=== PATIENT | male | born 1940 | race Hispanic/Latino ===

== ENCOUNTER 2019-08-21 10:44 | Outpatient (CLI) | payer MEDICARE, SELFPAY ==
--- NOTE | ~2019-08-21 | XR_ITS ---
EXAMINATION: XR hand LT 2V DATE: 08/21/2019 11:08 INDICATION: Left hand middle finger injury. TECHNIQUE: 2 views of left hand were obtained. COMPARISON: None. FINDINGS: Bone alignment is normal. No fracture. There is mild osteoarthritis of most of the interpha langeal joints. IMPRESSION: 1. Mild polyarticular osteoarthritis. Reviewed, dictated and finalized at location B. REDUCTION ROLLER
== END 2019-08-21 10:45 | disposition home or self-care (01) ==
LOC: ANHIMG 10:49
PROVIDERS: PCP Internal Medicine; Visit Provider Internal Medicine
DX: S60.032A Contusion of left middle finger without damage to nail, initial encounter (principal); X58.XXXA Exposure to other specified factors, initial encounter; M19.042 Primary osteoarthritis, left hand
CPT/HCPCS: 73120

== ENCOUNTER 2021-05-07 08:19 | Outpatient (CLI) | payer OTHER, SELFPAY ==
--- NOTE | ~2021-05-07 | US_ITS ---
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 TECHNIQUE: Segmental pressures and plethysmographic and Doppler waveforms of the brachial and lower e xtremity arteries were obtained. COMPARISON: None. FINDINGS: Right and left brachial artery pressures of 130 mm Hg and 134 mm Hg, respectively, are concordant (no rmal difference <= 30 mmHg). The right high thigh pressure index is 1.40 (normal > 1.2). The left hig h thigh pressure index was unable to be obtained due to inability to occlude the vessels. The right ankle-brachial index (MASON) is 0.83 (normal >= 0.9-1). The right great toe-brachial index (T BI) is 0.54 (normal >= 0.6-0.8). The right lower extremity segmental pressure gradients are increased between the right dsvaf-uqo-nbqg popliteal arteries and the right dorsalis pedis and posterior tibia l arteries at the right ankle (normal gradients <= 20-30 mmHg between adjacent levels on the same leg or the same levels on the two legs). Arterial waveforms are biphasic with brisk systolic upstrokes t hroughout the arteries of the right lower limb. The left MASON is 0.91. The left TBI is 0.71. The left lower extremity segmental pressure gradients are increased between the left evcta-srk-kdwz popliteal artery and the left dorsalis pedis and posterior tibial arteries at the left ankle. The arterial waveform at the left dorsalis pedis artery demonstra courtney poor fonnre-pj-vdrrj precluding accurate assessment. Arterial waveforms are biphasic with brisk s ystolic upstrokes at the remaining arteries of the left lower limb. IMPRESSION: 1. 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 2. Arterial pressure gradient at the left calf with borderline left MASON but normal left TBI consisten t with mild arterial occlusive disease of borderline significance. Reviewed, dictated and finalized at location B. IMPRESSION: 1. Mild arterial occlusive disease to the right lower limb with mildly decrease d right MASON and TBI. 2. Arterial pressure gradient at the left calf with borderline left MASON but nor mal left TBI consistent with mild arterial occlusive disease of borderline sign ificance.
== END 2021-05-07 08:20 | disposition home or self-care (01) ==
PROVIDERS: Visit Provider Podiatrist Foot & Ankle Surgery
DX: I73.9 Peripheral vascular disease, unspecified (principal)
CPT/HCPCS: 93923

== ENCOUNTER 2023-03-08 10:54 | Outpatient (CLI) | payer MEDICARE, SELFPAY ==
[2023-03-08 11:55] LABS: Basophils Percent Auto 0.4 % (0.2-1.2); Eosinophils Absolute Auto 0.1 K/mm3 (0-0.3); Eosinophils Percent Auto 1.5 % (0-4.4); Hematocrit 34.9 % (42.0-52.0); Hemoglobin 11.6 g/dL (14.0-18.0); Immature Granulocyte Absolute 0.02 K/mm3 (0.00-0.031); Immature Granulocyte Percent A 0.4 % (0-0.5); Lymphocytes Absolute Auto 1.68 K/mm3 (0.9-3.2); Lymphocytes Percent Auto 30.8 % (18.3-44.2); Mean Corpuscular HGB Conc 33.2 g/dl (32-36); Mean Corpuscular Hemoglobin 28.6 pg (26-34); Monocytes Absolute Auto 0.4 K/mm3 (0.1-0.6); Monocytes Percent Auto 8.1 % (2.6-8.5); Neutrophils Absolute Auto 3.2 K/mm3 (1.3-6.7); Neutrophils Percent Auto 58.8 % (45.5-73.1); Platelet Count Result 186 k/mm3 (150-375); Red Blood Count 4.06 M/mm3 (4.6-6.20); Red Cell Distribution Width 13.5 % (11.5-14.5); White Blood Count 5.5 K/mm3 (4.5-10.0)
[2023-03-08 12:05] LABS: Alanine Aminotransferase 20 U/L (6-50); Albumin Level 4.1 g/dL (3.5-5.1); Alkaline Phosphatase 75 U/L (38-126); Anion Gap 8 mmol/L (8-16); Aspartate Amino Transferase 24 U/L (17-59); Bilirubin,Total 0.6 mg/dL (0.2-1.3); Blood Urea Nitrogen 28 mg/dL (9-20); Calcium 8.9 mg/dL (8.4-10.2); Carbon Dioxide 22 mmol/L (22-30); Chloride 106 mmol/L (98-107); Cholesterol 167 mg/dL (0-200); Estimated Glomerular Filt Rate 39; Glucose 124 mg/dL (65-110); HDL Direct 42 mg/dL; Phosphorus 3.4 mg/dL (2.5-4.5); Potassium 4.9 mmol/L (3.4-5.0); Sodium 136 mmol/L (137-145); Triglycerides 160 mg/dL (<150)
[2023-03-08 12:17] LABS: LDL Cholesterol Direct 88 mg/dL
[2023-03-08 12:25] LABS: Appearance Urine Clear (Clear); Bacteria Urine None Seen /hpf; Bilirubin Urine Negative (Negative); Blood Urine Negative (Negative); Color Urine Yellow (Yellow); Glucose Urine UA Negative (Negative); Hyaline Casts Urine Present /lpf; Ketones Urine Negative (Negative); Leukocyte Esterase Ur 2+ LEU/UL (Negative); Nitrate Urine Negative (Negative); Non Pathogenic Casts 0-2; Protein Urine Negative (Negative); RBC Urine 0-2 /hpf (0-2); Specific Grav Ur 1.017 (1.001-1.035); Squamous Epithelial Cell Urine None seen /hpf (Few); Urobilinogen Urine 0.2 mg/dL (<2.0); WBC Urine 0-5 /hpf; pH Urine 5.5 (5.0-9.0)
[2023-03-08 12:26] LABS: Add Urine Microscopic? YES
[2023-03-08 12:31] LABS: Creatinine Urine 204.4 mg/dL
[2023-03-08 12:36] LABS: Prostate Specific Antigen 2.1 ng/mL (< OR = 4.0)
[2023-03-08 12:36] LABS: MALB Creatinine Ratio 9.9 mg/g (0-30); Microalbumin Urine Random 20.2 mg/L (0-16.7)
[2023-03-08 12:56] LABS: Vitamin D 25 Hydroxy 55.8 ng/mL
[2023-03-08 13:40] LABS: Free T4 Free Thyroxine 1.16 ng/mL (0.78-2.19)
[2023-03-12 13:00] LABS: Testosterone Total 320 ng/dL (250-1100)
== END 2023-03-08 10:55 | disposition home or self-care (01) ==
PROVIDERS: Visit Provider Internal Medicine
DX: J15.9 Unspecified bacterial pneumonia (principal); E11.22 Type 2 diabetes mellitus with diabetic chronic kidney disease; N40.1 Benign prostatic hyperplasia with lower urinary tract symptoms; I12.9 Hypertensive chronic kidney disease with stage 1 through stage 4 chronic kidney disease, or unspecified chronic kidney disease; N18.32 Chronic kidney disease, stage 3b; D64.9 Anemia, unspecified; Z79.899 Other long term (current) drug therapy; E78.2 Mixed hyperlipidemia; E66.09 Other obesity due to excess calories
CPT/HCPCS: 36415; 80053; 80061; 81001; 82043; 82306; 83036; 84100; 84153; 84403; 84439; 84443; 85025

== ENCOUNTER 2023-05-04 10:04 | Outpatient (CLI) | payer MEDICARE, SELFPAY ==
--- NOTE | ~2023-05-04 | US_ITS ---
EXAMINATION: US abdomen complete DATE: 05/04/2023 11:08 INDICATION: Anorexia, weight loss TECHNIQUE: Multiple grayscale and Doppler ultrasound images of the abdomen were obtained. COMPARISON: 08/06/2019 FINDINGS: The head and body of the pancreas are normal. The pancreatic tail is obscured by bowel gas. The liver is normal with normal echogenicity and echotexture. No surface nodularity. Normal hepatope jose flow in the main portal vein. The gallbladder is normal with no abnormal wall thickening, pericho lecystic fluid or stones. The normal common bile duct measures 1 mm. There was no sonographic Rose sign. The visualized portions of the aorta and inferior vena cava are normal. The spleen is normal in appearance and measures 10.3 cm. The right kidney measures 8.6 x 3.7 x 3.5 cm . The left kidney measures 8.9 x 4.6 x 3.4 cm. The kidneys demonstrate normal parenchymal echogenicit y. There is no hydronephrosis. IMPRESSION: 1. No sonographic correlate for the patient's symptoms. 2. Mild atrophy of the kidneys. Reviewed, dictated and finalized at location A.
== END 2023-05-04 10:05 | disposition home or self-care (01) ==
PROVIDERS: PCP Internal Medicine; Visit Provider Internal Medicine
DX: R63.4 Abnormal weight loss (principal); R68.81 Early satiety; R63.0 Anorexia
CPT/HCPCS: 76700

== ENCOUNTER 2023-05-05 00:58 | Day surgery (SDC) | payer MEDICARE, SELFPAY ==
[2023-04-25 13:59] VITALS: BMI 31.5
[2023-05-05 11:39] VITALS: BP 149/48; PULSE 66; RESP 20; TEMP 35.8; O2SAT 100; BMI 29.7
--- NOTE | 2023-05-05 12:03 | PM.HPGS ---
History of Present Illness History of Present Illness Consent: Risks, benefits, and alternatives have been discussed and questions answered. Patient agrees to proceed with procedure. Chief complaint: abnormal weightloss,early satiety,anorexia Narrative: Missael Madrigal is a 83 year old male Referred for EGD. Patient reports over last 4 months he has lost his appetite. He will eat several bites of a meal and then be feel full and not wish to eat anymore. Because of this he has lost some weight. He denies any specific abdominal pain. Patient referred for EGD to exclude organic disease of the stomach. Family history is noncontributory. He denies any prior history of ulcer disease. Review of Systems Review of Systems: Review of systems noncontributory. [facility] Family History Family History (Updated 10/02/15 @ 12:10 by DOCTOR UNKNOWN) Sibling Family history of suicide Patient's sister is Patient's brother is Acute myocardial infarction Mother Patient's mother is Father Patient's father is Social History Social History Smoking status: Never smoker Alcohol intake: former Substance use: never Substance use type: does not use Living arrangements: with family Spiritual care concerns: No Meds Home Medications and Allergies Home Medications Medication Instructions Recorded Confirmed Type aspirin 81 mg tablet,delayed 81 mg PO DAILY 07/26/19 05/05/23 History release (Aspir-) lisinopril 20 mg tablet 20 mg PO DAILY #90 tabs 08/12/20 05/05/23 Rx doxazosin 8 mg tablet 8 mg PO DAILY #90 tabs 02/01/21 05/05/23 Rx metformin 500 mg tablet 500 mg PO BID #180 tabs 02/01/21 05/05/23 Rx pravastatin 20 mg tablet 20 mg PO DAILY #90 tabs 02/15/21 05/05/23 Rx brimonidine 0.2 % eye drops 1 drp LEFT EYE BID 04/25/23 05/05/23 History brinzolamide 1 %-brimonidine 0.2 % 1 drp LEFT EYE BID 04/25/23 05/05/23 History eye drops,suspension (Simbrinza) cholecalciferol (vitamin D3) 25 25 mcg PO DAILY 04/25/23 05/05/23 History mcg (1,000 unit) capsule (Vitamin D3) prednisolone acetate 1 % eye 1 drp LEFT EYE BID 04/25/23 05/05/23 History drops,suspension sodium chloride 5 % eye drops 1 drp LEFT EYE QID 04/25/23 05/05/23 History (René 128) timolol maleate 0.5 % eye drops 1 drp LEFT EYE BID 04/25/23 05/05/23 History Allergies Allergy/AdvReac Type Severity Reaction Status Date / Time No Known Allergies Allergy Verified 05/05/23 11:38 Vital Signs Vital Signs - 24 hr 05/05/23 11:39 Temperature 96.5 F L Pulse Rate 66 Respiratory Rate 20 Blood Pressure 149/48 H Pulse Oximetry 100 Oxygen Delivery Room Air Exam Narrative: Physical exam reveals patient to be alert. Vital signs stable. HEENT exam is unremarkable. Patient is anicteric. Lungs are clear to auscultation and percussion. Heart is without murmur or extra sounds. Abdomen bowel sounds are present soft nontender with no organomegaly. Assessment and Plan Assessment and plan (1) Obesity (BMI 30.0-34.9): Code(s): E66.9 - Obesity, unspecified Status: Acute Assessment and Plan: patient remains obese despite weight loss. Continue monitor weight conservatively. (2) Weight loss: Code(s): R63.4 - Abnormal weight loss Status: Acute Assessment and Plan: Patient reports some recent weight loss associated with poor appetite and early satiety, EGD requested will be performed. (3) Early satiety: Code(s): R68.81 - Early satiety Status: Acute Assessment and Plan: Patient complains of no appetite and feeling full quickly. an EGD will be performed.
[2023-05-05] MEDS: LACTATED RINGERS 1,000 ML 150 ML IV CONT (12:06)
[2023-05-05 12:07] LABS: Glucose Point of Care 94 mg/dl (65-105)
--- NOTE | 2023-05-05 12:11 | WPDANESEPPF ---
Anes - Initial Pre Proc Eval Procedure: Operation Date: 05/05/23 13:00 Proposed Procedures p Esophagogastroduodenoscopy - Charlie Bergeron MD Date/Time: 05/05/23 12:11 Surgeon: Charlie Bergeron MD Pre Op Diagnosis: abnormal weightloss,early satiety,anorexia Patient Data Age: 83 Gender: M Height: 1.57 m Weight: 73.7 kg Last Vital Signs Temp 35.8 C L 05/05/23 11:39 Pulse 66 05/05/23 11:39 Resp 20 05/05/23 11:39 BP 149/48 H 05/05/23 11:39 Pulse Ox 100 05/05/23 11:39 O2 Del Method Room Air 05/05/23 11:39 Allergies Allergy/AdvReac Type Severity Reaction Status Date / Time No Known Allergies Allergy Verified 05/05/23 11:38 Home Medications Medication Instructions Recorded Confirmed Type aspirin 81 mg tablet,delayed 81 mg PO DAILY 07/26/19 05/05/23 History release (Aspir-) lisinopril 20 mg tablet 20 mg PO DAILY #90 tabs 08/12/20 05/05/23 Rx doxazosin 8 mg tablet 8 mg PO DAILY #90 tabs 02/01/21 05/05/23 Rx metformin 500 mg tablet 500 mg PO BID #180 tabs 02/01/21 05/05/23 Rx pravastatin 20 mg tablet 20 mg PO DAILY #90 tabs 02/15/21 05/05/23 Rx brimonidine 0.2 % eye drops 1 drp LEFT EYE BID 04/25/23 05/05/23 History brinzolamide 1 %-brimonidine 0.2 % 1 drp LEFT EYE BID 04/25/23 05/05/23 History eye drops,suspension (Simbrinza) cholecalciferol (vitamin D3) 25 25 mcg PO DAILY 04/25/23 05/05/23 History mcg (1,000 unit) capsule (Vitamin D3) prednisolone acetate 1 % eye 1 drp LEFT EYE BID 04/25/23 05/05/23 History drops,suspension sodium chloride 5 % eye drops 1 drp LEFT EYE QID 04/25/23 05/05/23 History (René 128) timolol maleate 0.5 % eye drops 1 drp LEFT EYE BID 04/25/23 05/05/23 History Laboratory Tests 05/05/23 11:52 POC Capillary Glucose 94 mg/dl (65-105) Patient hx anesthesia problems: none Family hx anesthesia problems: none Results Review: All pre-operative results and documents have been reviewed as part of the pre-operative evaluation. [facility] Family History Family History Sibling Family history of suicide Patient's sister is Patient's brother is Acute myocardial infarction Mother Patient's mother is Father Patient's father is Social History Social History Smoking status: Never smoker Alcohol intake: former Substance use: never Substance use type: does not use Living arrangements: with family Spiritual care concerns: No Anes - Eval Final PreProcedure Day of Procedure 05/05/23 12:11 Patient weight: overweight Heart: regular rate and rhythm Lungs: clear to auscultation Airway: Mallampati scale class II Neurological: alert and oriented Last oral intake: >/= 8 hours ASA classification: III Emergent: no Anesthetic plan: proceed Anesthesia type and monitoring: general GIVS and standard monitoring Results Review: All pre-operative results and documents have been reviewed as part of the pre-operative evaluation. Informed Consent: The patient's anesthetic plan and its attendant risks and benefits were discussed with the patient/family/POA. Questions were solicited and answers provided to the satisfaction of the patient/family/POA.
[2023-05-05 12:23] VITALS: BP 109/38; PULSE 55; RESP 20; O2SAT 99
--- NOTE | 2023-05-05 12:25 | SUR.OPER ---
Dr. Bergeron made aware of the positive H. pylori test.
[2023-05-05 12:33] VITALS: BP 141/53; PULSE 52; RESP 15; O2SAT 100
[2023-05-05 12:43] VITALS: BP 141/53; PULSE 55; RESP 20; O2SAT 100
== END 2023-05-05 12:58 | disposition home or self-care (01) ==
PROVIDERS: PCP Internal Medicine; Visit Provider Internal Medicine Gastroenterology
PROC: 0DJ08ZZ Inspection of Upper Intestinal Tract, Via Natural or Artificial Opening Endoscopic (ICD-10-PCS; CPT 43235; principal; 2023-05-05 13:00)
DX: R68.81 Early satiety (principal); R63.4 Abnormal weight loss; Z79.82 Long term (current) use of aspirin; Z79.84 Long term (current) use of oral hypoglycemic drugs; E66.9 Obesity, unspecified; Z68.29 Body mass index [BMI] 29.0-29.9, adult
CPT/HCPCS: 43239; 82948; 87081; J2704; J7120

== ENCOUNTER 2023-08-11 09:56 | Outpatient (CLI) | payer MEDICARE, SELFPAY ==
[2023-08-11 11:17] LABS: Basophils Percent Auto 0.4 % (0.2-1.2); Eosinophils Absolute Auto 0.2 K/mm3 (0-0.3); Eosinophils Percent Auto 3.2 % (0-4.4); Hematocrit 33.7 % (42.0-52.0); Hemoglobin 10.5 g/dL (14.0-18.0); Immature Granulocyte Absolute 0.01 K/mm3 (0.00-0.031); Immature Granulocyte Percent A 0.2 % (0-0.5); Lymphocytes Absolute Auto 1.47 K/mm3 (0.9-3.2); Lymphocytes Percent Auto 29.2 % (18.3-44.2); Mean Corpuscular HGB Conc 31.2 g/dl (32-36); Mean Corpuscular Hemoglobin 28.6 pg (26-34); Mean Corpuscular Volume 91.8 fl (80-100); Mean Platelet Volume 10.2 fl (7.4-10.4); Monocytes Absolute Auto 0.4 K/mm3 (0.1-0.6); Monocytes Percent Auto 7.3 % (2.6-8.5); Neutrophils Percent Auto 59.7 % (45.5-73.1); Platelet Count Result 171 k/mm3 (150-375); Red Blood Count 3.67 M/mm3 (4.6-6.20); Red Cell Distribution Width 13.2 % (11.5-14.5)
[2023-08-11 11:28] LABS: Alanine Aminotransferase 18 U/L (6-50); Alkaline Phosphatase 81 U/L (38-126); Anion Gap 9 mmol/L (8-16); Aspartate Amino Transferase 25 U/L (17-59); Bilirubin,Total 0.4 mg/dL (0.2-1.3); Blood Urea Nitrogen 34 mg/dL (9-20); Calcium 8.6 mg/dL (8.4-10.2); Carbon Dioxide 20 mmol/L (22-30); Chloride 110 mmol/L (98-107); Cholesterol 168 mg/dL (0-200); Estimated Glomerular Filt Rate 42; Glucose 107 mg/dL (65-110); HDL Direct 55 mg/dL; Potassium 5.4 mmol/L (3.4-5.0); Sodium 139 mmol/L (137-145); Triglycerides 109 mg/dL (<150)
[2023-08-11 11:39] LABS: Hemoglobin A1C 5.6 % (<5.7); LDL Cholesterol Direct 79 mg/dL
[2023-08-11 11:54] LABS: Appearance Urine Clear (Clear); Bacteria Urine None Seen /hpf; Bilirubin Urine Negative (Negative); Blood Urine Negative (Negative); Color Urine Yellow (Yellow); Glucose Urine UA Negative (Negative); Ketones Urine Negative (Negative); Leukocyte Esterase Ur 1+ LEU/UL (Negative); Need Manual Microscopic Reviewed; Nitrate Urine Negative (Negative); Non Pathogenic Casts 0-2; Protein Urine Negative (Negative); RBC Urine 0-2 /hpf (0-2); Specific Grav Ur 1.015 (1.001-1.035); Squamous Epithelial Cell Urine None seen /hpf (Few); Urobilinogen Urine 0.2 mg/dL (<2.0); WBC Urine 0-5 /hpf; pH Urine 5.5 (5.0-9.0)
[2023-08-11 12:02] LABS: Add Urine Microscopic? YES
[2023-08-11 13:16] LABS: Creatinine Urine 82.3 mg/dL
[2023-08-11 13:20] LABS: MALB Creatinine Ratio 42.5 mg/g (0-30)
[2023-08-11 13:31] LABS: Free T4 Free Thyroxine 1.26 ng/mL (0.78-2.19); Vitamin D 25 Hydroxy 44.3 ng/mL
== END 2023-08-11 09:57 | disposition home or self-care (01) ==
PROVIDERS: PCP Internal Medicine
DX: R63.4 Abnormal weight loss (principal); E66.09 Other obesity due to excess calories; E78.2 Mixed hyperlipidemia; Z79.899 Other long term (current) drug therapy; I12.9 Hypertensive chronic kidney disease with stage 1 through stage 4 chronic kidney disease, or unspecified chronic kidney disease; N18.32 Chronic kidney disease, stage 3b; E11.22 Type 2 diabetes mellitus with diabetic chronic kidney disease; R63.0 Anorexia; R68.81 Early satiety; N40.1 Benign prostatic hyperplasia with lower urinary tract symptoms
CPT/HCPCS: 36415; 80053; 80061; 81001; 82043; 82248; 82306; 83036; 84439; 84443; 85025

== ENCOUNTER 2023-11-17 08:16 | Outpatient (CLI) | payer MEDICARE, SELFPAY ==
[2023-11-17 09:22] LABS: Appearance Urine Clear (Clear); Bilirubin Urine Negative (Negative); Blood Urine Negative (Negative); Color Urine Yellow (Yellow); Glucose Urine UA Negative (Negative); Ketones Urine Negative (Negative); Leukocyte Esterase Ur Negative LEU/UL (Negative); Nitrate Urine Negative (Negative); Protein Urine Negative (Negative); Specific Grav Ur 1.009 (1.001-1.035); Urobilinogen Urine 0.2 mg/dL (<2.0)
[2023-11-17 09:28] LABS: Add Urine Microscopic? NO
[2023-11-17 09:38] LABS: Basophils Percent Auto 0.4 % (0.2-1.2); Eosinophils Absolute Auto 0.1 K/mm3 (0-0.3); Eosinophils Percent Auto 2.9 % (0-4.4); Hematocrit 37.2 % (42.0-52.0); Hemoglobin 11.7 g/dL (14.0-18.0); Immature Granulocyte Absolute 0.02 K/mm3 (0.00-0.031); Immature Granulocyte Percent A 0.4 % (0-0.5); Immature Reticulocyte Fraction 11.4 % (3.0-15.9); Lymphocytes Absolute Auto 1.52 K/mm3 (0.9-3.2); Lymphocytes Percent Auto 31.6 % (18.3-44.2); Mean Corpuscular HGB Conc 31.5 g/dl (32-36); Mean Corpuscular Hemoglobin 27.9 pg (26-34); Mean Corpuscular Volume 88.6 fl (80-100); Mean Platelet Volume 10.4 fl (7.4-10.4); Monocytes Absolute Auto 0.5 K/mm3 (0.1-0.6); Monocytes Percent Auto 9.6 % (2.6-8.5); Neutrophils Absolute Auto 2.7 K/mm3 (1.3-6.7); Neutrophils Percent Auto 55.1 % (45.5-73.1); Platelet Count Result 167 k/mm3 (150-375); Red Cell Distribution Width 13.7 % (11.5-14.5); Reticulocyte Hemoglobin Conten 32.4 pg (28.2-35.7); Reticulocyte Percent 1.18 % (0.7-4.3); Reticulocytes Absolute 0.05 M/mm3 (0.02-0.1); White Blood Count 4.8 K/mm3 (4.5-10.0)
[2023-11-17 09:53] LABS: Creatinine Urine 46.5 mg/dL; Total Protein Urine Random 17 mg/dL
[2023-11-17 09:59] LABS: MALB Creatinine Ratio 89.5 mg/g (0-30); Microalbumin Urine Random 41.6 mg/L (0-16.7)
[2023-11-17 10:56] LABS: Alanine Aminotransferase 15 U/L (6-50); Albumin Level 4.4 g/dL (3.5-5.1); Alkaline Phosphatase 80 U/L (38-126); Anion Gap 8 mmol/L (8-16); Aspartate Amino Transferase 27 U/L (17-59); Bilirubin,Total 0.4 mg/dL (0.2-1.3); Blood Urea Nitrogen 34 mg/dL (9-20); Calcium 9.2 mg/dL (8.4-10.2); Carbon Dioxide 21 mmol/L (22-30); Chloride 110 mmol/L (98-107); Cholesterol 167 mg/dL (0-200); Estimated Glomerular Filt Rate 36; Glucose 103 mg/dL (65-110); HDL Direct 59 mg/dL; Lactate Dehydrogenase 193 U/L (120-246); Potassium 5.3 mmol/L (3.4-5.0); Sodium 139 mmol/L (137-145); Triglycerides 114 mg/dL (<150)
[2023-11-17 10:58] LABS: Iron 62 ug/dL (49-181)
[2023-11-17 11:09] LABS: LDL Cholesterol Direct 83 mg/dL; Transferrin 290 mg/dL (206-381)
[2023-11-17 11:28] LABS: Percent Iron Saturation 17 % (20-50)
[2023-11-17 11:48] LABS: Hemoglobin A1C 6.2 % (<5.7)
[2023-11-17 12:02] LABS: Folic Acid 6.1 ng/mL (2.76->20)
[2023-11-21 10:26] LABS: Albumin 4.1 g/dL (3.8-4.8); Alpha 1 Globulin 0.3 g/dL (0.2-0.3); Alpha 2 Globulin 0.8 g/dL (0.5-0.9); Beta 1 Globulin 0.5 g/dL (0.4-0.6); Gamma Globulin 1.1 g/dL (0.8-1.7); Protein, Total 7.2 g/dL (6.1-8.1)
[2023-11-22 10:44] LABS: Haptoglobin 209 mg/dL (43-212)
[2023-11-22 22:37] LABS: Creatinine, Random Urine 45 mg/dL (20-320); Total Protein/Creatinine Ratio 244 mg/g creat (25-148)
== END 2023-11-17 08:17 | disposition home or self-care (01) ==
LOC: ANHLAB 08:25
PROVIDERS: PCP Internal Medicine; Visit Provider Internal Medicine
DX: D64.9 Anemia, unspecified (principal); E11.9 Type 2 diabetes mellitus without complications; I12.9 Hypertensive chronic kidney disease with stage 1 through stage 4 chronic kidney disease, or unspecified chronic kidney disease; N18.32 Chronic kidney disease, stage 3b; E78.2 Mixed hyperlipidemia; E66.09 Other obesity due to excess calories; R63.0 Anorexia; R68.81 Early satiety; R63.4 Abnormal weight loss; N40.1 Benign prostatic hyperplasia with lower urinary tract symptoms; Z79.899 Other long term (current) drug therapy
CPT/HCPCS: 36415; 80053; 80061; 81003; 81050; 82043; 82570; 82607; 82728; 82746; 83010; 83036; 83540; 83550; 83615; 84155; 84156; 84165; 84166; 84443; 84466; 85025; 85046

== ENCOUNTER 2023-11-18 12:25 | Outpatient (CLI) | payer MEDICARE, SELFPAY ==
[2023-11-18 17:16] LABS: IFOB Positive Control Positive; Immunochemical Fecal Occult Bl Negative (N)
== END 2023-11-18 12:26 | disposition home or self-care (01) ==
LOC: ANHLAB 12:28
PROVIDERS: PCP Internal Medicine; Visit Provider Internal Medicine
DX: E78.2 Mixed hyperlipidemia (principal); D64.9 Anemia, unspecified; I10 Essential (primary) hypertension; Z79.899 Other long term (current) drug therapy; E11.9 Type 2 diabetes mellitus without complications; E66.09 Other obesity due to excess calories; I12.9 Hypertensive chronic kidney disease with stage 1 through stage 4 chronic kidney disease, or unspecified chronic kidney disease; N18.32 Chronic kidney disease, stage 3b; E11.22 Type 2 diabetes mellitus with diabetic chronic kidney disease; R63.0 Anorexia; R68.81 Early satiety; R63.4 Abnormal weight loss; N40.1 Benign prostatic hyperplasia with lower urinary tract symptoms
CPT/HCPCS: 82274; 87324

== ENCOUNTER 2024-12-02 09:28 | Outpatient (CLI) | payer MEDICARE, SELFPAY ==
--- OUTSIDE RECORDS SUMMARY | 2024-12-02 10:40 | XMS_ITS | Clinical Summary ---
Author Organization [facility] Address [address] [place] [address] Phone Care Team Providers Care Chief Design Engineer Name Role Phone Unavailable Primary Care Provider Unavailabl e Social History Tobacco Use Types Packs/Day Years Used Date Smoking Tobacco: Never Assessed Sex and Gender Information Value Date Recorded Sex Assigned at Not on file Legal Sex Male 11:41 PM CDT Gender Identity Not on file Sexual Orientation Not on file Plan of Treatment Not on file
--- OUTSIDE RECORDS SUMMARY | 2024-12-02 10:40 | XMS_ITS | Clinical Summary ---
Author Organization [facility] Address [address] [place] [address] Care Team Providers Care Driller'S Assistant Name Role Phone Ester Restrepo PERSONAL LINES APPRAISER Primary Care Provider [phone] Allergies No known active allergies Medications aspirin EC (ECOTRIN) 81 MG tablet Take 1 tablet (81 mg total) by mouth daily. Active LUMIGAN 0.01 % Solution Place 1 drop into both eyes nightly. 03/20/20 24 Active brimonidine (ALPHAGAN) 0.2 % ophthalmic solution instill 1 drop into left eye twice a day 03/20/20 24 Active dorzolamide-timolo l (COSOPT) 2-0.5 % Solution instill 1 drop into left eye twice a day 03/18/20 24 Active prednisoLONE acetate (PRED FORTE) 1 % ophthalmic suspension instill 1 drop into left eye twice a day 04/18/20 23 Active ferrous sulfate EC 324 MG tabletIndications: Anemia, unspecified type Take 1 tablet (324 mg total) by mouth 2 (two) times daily before meals. 180 tablet 3 04/04/20 24 025 Active vitamin D3 10 mcg tablet Take 1 tablet (10 mcg total) by mouth daily. Active doxazosin (CARDURA) 8 MG tabletIndications: Benign prostatic hyperplasia with nocturia Take 1 tablet (8 mg total) by mouth daily. 90 tablet 3 07/04/20 24 Active hydroCHLOROthiazid e (MICROZIDE) 12.5 MG tabletIndications: Hyperkalemia Take 1 tablet (12.5 mg total) by mouth every morning. 90 tablet 3 07/04/20 24 Active dapagliflozin (FARXIGA) 10 MG tabletIndications: CKD stage 4 due to type 2 diabetes mellitus ([facility]) Take 1 tablet (10 mg total) by mouth daily. 90 tablet 4 07/04/20 24 Active docusate sodium (COLACE) 100 MG capsuleIndications :Drug-induced constipation Take 1 capsule (100 mg total) by mouth 2 (two) times daily. For constipation 180 capsule 1 08/02/20 24 Active amLODIPine (NORVASC) 2.5 MG tabletIndications: Essential hypertension Take 1 tablet (2.5 mg total) by mouth daily. 90 tablet 1 08/02/20 24 Active pravastatin (PRAVACHOL) 40 MG tabletIndications: Mixed hyperlipidemia Take 1 tablet (40 mg total) by mouth nightly at bedtime. 90 tablet 1 08/14/20 24 Active metFORMIN (GLUCOPHAGE) 500 MG tablet Take 1 tablet (500 mg total) by mouth 2 (two) times daily. 11/26/19 Active latanoprost (XALATAN) 0.005 % ophthalmic solution instill 1 drop into both eyes every night at bedtime 10/30/19 25 Active BLOOD PRESSURE CUFF, DME,Indications:Es sential hypertension 1 Device by Does not apply route 2 (two) times daily. 1 Device 1 11/30/19 25 Active Active Problems Problem Noted Date Diagnosed Date Iron deficiency anemia, unsp ecified iron deficiency anemia type 08/02/2024 Hyperkalemia 03/27/2024 CKD stage 4 due to type 2 di abetes mellitus ([facility]) 03/27/2024 Glaucoma of both eyes, unspecified glaucoma type 03/26/2024 Throat clearing 03/25/2024 Type 2 diabetes mellitus wit hout complication, without long-term current use of insulin ([facility]) 05/19/2021 Essential hypertension 05/19/2021 Mixed hyperlipidemia 05/19/2021 Benign prostatic hyperplasia with nocturia 05/19 Resolved Problems Problem Noted Date Diagnosed Date Resolved Date Chronic kidney disease, stage 3b 03/27/2024 03/27/2024 Encounters Date Type Department Care Team Description 11/29/2024 9:40 AM CDT Office Visit [facility] Mult[facility]pecialty Care - [address] [place] [address] Ester Restrepo, JONATHAN Diabetes; Hypertension 11/29/2024 Travel from Last 3 Months Immunizations Name Administration Dates Next Due Fluzone High Dose (IIV, triv alent, 0.5mL) 08/02/2024 Fluzone High Dose - >Age 65 (Prefilled Syringe) 06/27/2023,05/07/2022,05/21/2021,2020(Deferred: Patient Refused),06/03/2019,06/20/2018 Influenza Adult (Generic) 06/03/2019,06/20/2018 PFIZER COVID-19 (ORIGINAL FORMULATION, PURPLE CAP) mRNA, LNP-S, PF, 30 MCG/0.3 ML DOSE 11/04/2020 Pneumococcal (Pneumovax 23) 06/03/2019 Pneumococcal (Prevnar 13) 07/05/2021 Pneumococcal (Prevnar 20) 08/02/2024 Tdap (Adacel) 11/29/2024 Family History Medical History Relation Comments No Known Problems Father No Known Problems Mother Relation Status Comments Father Mother Social History Tobacco Use Types Packs/Day Years Used Date Smoking Tobacco: Never Passive Smoke Exposure: Never Smokeless Tobacco: Never Tobacco Cessation:Counseling Given: No Alcohol Use Standard Drinks/Week Comments Never 0 (1 standard drink = 0.6 oz pur e alcohol) AUDIT-C Answer Date Recorded Q1: How often do you have a drink containing alc ohol? Monthly or less 11/18/2020 Q2: How many drinks containi ng alcohol do you have on a typical day when you are drinking? 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 Gender Identity Male 11/29/2024 9:50 AM CDT Sexual Orientation Straight 11/29/2024 9: 50 AM CDT Last Filed Vital Signs Vital Sign Reading Time Taken Comments Blood Pressure 144/60 11/29/2024 9:48 AM CDT Pulse 52 11/29/2024 9:48 AM CDT Temperature 36.7 C (98.1 F) 11/29/2024 9:48 AM CDT Respiratory Rate 18 11/29/2024 9:48 AM CDT Oxygen Saturation 99% 11/29/2024 9:48 AM CDT Inhaled Oxygen Concentration - - Weight 78.6 kg (173 lb 3.2 oz) 11/29/2024 9:48 A M CDT Height 154.9 cm (5' 1 ) 11/29/2024 9:48 AM CDT Body Mass Index 32.73 11/29/2024 9:48 AM CDT Plan of Treatment Upcoming Encounters Date Type Department Care Team (Late st Contact Info) Description 01/28/2025 2:00 PM CDT Office Visit [facility] [place] [address] [place] [address] Daron Clark MD [address] [address] 05/01/2025 10:20 AM CDT Office Visit [facility] - [place] [address] [place] [address] Ester Restrepo, PERSONAL LINES APPRAISER [address] [place] [address] Health Maintenance Due Date Last Done Comments Diabetes: Retinopathy Eye Exam 1959 Zoster Vaccines (1 of 2) 1991 Annual Medicare Wellness Visit 2006 RSV Immunization or 60+ Years (1 - 1-dose 75+ series) 02/04/2016 COVID-19 Vaccine ( season) 2024 06/27/2023, 06/03/2022, 12/05/2020, Additional history exists PHQ-2 (Physician [place]) 09/11/2024 07/04/2024 Hemoglobin A1C 06/01/2025 11/29/2024, 11/2 10/2023, 03/25/2024, Additional history exists Kidney Health Evaluation 08/02/2025 08/02/2024 Lipid Panel 11/29/2025 11/29/2024, 07/13, 03/25/2024, Additional history exists DTaP, Tdap and Td Vaccines (2 - Td or Tdap) 11/29/2034 11/29/2024 Influenza Adult Completed 08/02/2024, 06/11, 05/07/2022, Additional history exists Pneumococcal Vaccine: 65+ Years Completed 08/02/2024, 07/05/2021, 06/03/2019 Meningococcal B Vaccine Aged Out No l onger eligible based on patient's age to complete this topic Meningococcal Vaccine Aged Out No dino octaivo eligible based on patient's age to complete this topic RSV Immunizations Under 20 Months Aged Out No longer eligible based on patient's age to complete this topic Procedures Procedure Name Priority Date/Time Associated Diagnosis Comments LIPID PANEL Today 11/29/2024 10:46 AM CDT Type 2 diabetes mellitus without complication, without long-term current use of insulin ([facility]) COMPREHENSIVE METABOLIC PANEL Routine 11/29/2024 10:46 AM CDT Type 2 diabetes mellitus without complication, without long-term current use of insulin ([facility]) CKD stage 4 due to type 2 diabetes mellitus ([facility]) HEMOGLOBIN, GLYCOSYLATED Routine 11/29/2024 Type 2 diabetes mellitus without complication, without long-term current use of insulin ([facility]) from Last 3 Months Results * (ABNORMAL) COMPREHENSIVE METABOLIC PANEL (11/29/2024 10:46 AM CDT) GLUCOSE 128(H) 65 - 99 mg/dL [facility] Comment: Fasting reference interval For someone without known diabetes, a glucose value >125 mg/dL indicates that they may have diabetes and this should be confirmed with a follow-up test. BUN 30(H) 7 - 25 mg/dL [facility] CREATININE S/P/B 2.04(H) 0.70 - 1.22 mg/dL [facility] GFR ESTIMATE 32(L) > OR = 60 mL/min/1. 73m2 [facility] BUN CREATININE RATIO 15 6 - 22 (calc) [id number] SODIUM S/P/B 143 135 - 146 mmol/L [facility] POTASSIUM S/P/B 3.7 3.5 - 5.3 mmol/L [facility] CHLORIDE S/P/B 104 98 - 110 mmol/L [facility] CO2 23 20 - 32 mmol/L [facility] CALCIUM S/P/B 9.6 8.6 - 10.3 mg/dL [facility] TOTAL PROTEIN S/P/B 7.6 6.1 - 8.1 g/dL [facility] ALBUMIN S/P/B 4.2 3.6 - 5.1 g/dL [id number] GLOBULIN 3.4 1.9 - 3.7 g/dL (calc) [facility] ALBUMIN/GLOBULIN RATIO 1.2 1.0 - 2.5 (calc) LOG[facility] BILIRUBIN TOTAL S/P/B 0.4 0.2 - 1.2 mg/dL [facility] ALKALINE PHOSPHATASE S/P/B 69 35 - 144 U/L [facility] AST 21 10 - 35 U/L [id number] ALT 23 9 - 46 U/L LOG[facility] 11/29/2024 10:4 6 AM CDT 11/30/2024 3:48 AM CDT Narrative Resulting Agency Comment Performing Organization Information: Site ID: [place] [facility] Address: [address] [facility] [place] [address] Director: Emily Hayes MD us Ester Restrepo NP LABORATORY Final Resul t [facility] [facility] [id number] [place] [address] [place] [address], O[place] * (ABNORMAL) LIPID PANEL (11/29/2024 10:46 AM CDT) CHOLESTEROL 187 <200 mg/dL [facility] HDL 57 > OR = 40 mg/dL [id number] TRIGLYCERIDES 116 <150 mg/dL LOG[facility] LDL (CALCULATED) 108(H) mg/dL (calc) [facility] Comment: Reference range: <100 Desirable range <100 mg/dL for primary prevention; <70 mg/dL for patients with CHD or diabetic patients with > or = 2 CHD risk factors. LDL-C is now calculated using the Azucena calculation, which is a validated novel method providing better accuracy than the Friedewald equation in the estimation of LDL-C. Galindo SANTIAGO et al. LUANNE. 2013;310(19): 7005-6689 (http://education.[employer]/faq/UXK415) CHOL/HDL RATIO 3.3 <5.0 (calc) [facility] NON HDL CHOLESTEROL 130(H) <130 mg/dL (calc) [facility] Comment: For patients with diabetes plus 1 major ASCVD risk factor, treating to a non-HDL-C goal of <100 mg/dL (LDL-C of <70 mg/dL) is considered a therapeutic option. 11/29/2024 10:4 6 AM CDT 11/30/2024 3:48 AM CDT Narrative Resulting Agency Comment Performing Organization Information: Site ID: [place] Name: [facility] Address: [address] [place] [id number] Director: Emily Hayes MD Ester Restrepo NP LABORATORY Final Resul t Performing Organization Address [facility] Co de Phone Number [facility] [address] [id number] [place] [id number], * A1C (BACK OFFICE) (11/29/2024) HGB A1C 6.8 % [id number], [place] 11/29/2024 Ester Restrepo NP LABORATORY Final Resul t Performing Organization Address City/[facility]/ZIP Co de Phone Number [id number], [place] [address] [place] [address], from Last 3 Months Insurance [employer] Care Teams Driller'S Assistant Relationship Specialty Start Date End Date Ester Restrepo, PERSONAL LINES APPRAISER [address] [facility] [address] [place] [address] PCP - General NURSE PRACTITIONER 03/15/24
--- OUTSIDE RECORDS SUMMARY | 2024-12-02 10:40 | XMS_ITS | Encounter Summary ---
Author Organization [facility] Address [address] [place] [address] Care Team Providers Care Slitting And Shipping Supervisor Name Role Phone Ester Restrepo NP Primary Care Provider [phone] Reason for Referral * Consultation (Routine) - Authorized Specialty Diagnoses / Procedures Referred By Rah t Referred To Contact UROLOGY Diagnoses Benign prostatic hyperplasia with post-void dribbling Procedures OFFICE/OUTPATIENT NEW LOW MDM 30-44 MINUTES OFFICE/OUTPT VISIT,NEW,LEVL IV OFFICE/OUTPT VISIT,NEW,LEVL V OFFICE/OUTPT VISIT,EST,LEVL III OFFICE/OUTPT VISIT,EST,LEVL IV OFFICE/OUTPT VISIT,EST,LEVL V Ester Restrepo NP [address] [place] [address] Phone: tel: fax: [facility] [place] [address] [place] [address] Phone: tel: fax: Referral ID Status Reason Start Date Expiration Date Visits Requested Visits Authorized [id number] Authorized Specialty Services 11/29/2024 12/29/2025 99 99 Scheduling Instructions [facility] location Reason for Visit * Reason Comments Diabetes Hypertension Encounter Details Date Type Department Care Team (Latest Contact Info) Description 11/29/2024 9:40 AM CDT Office Visit [facility] [place] [address] [place] [address] Ester Restrepo NP [address] [place] [address] Diabetes; Hypertension Social History Tobacco Use Types Packs/Day Years [...] AM CDT Legal Sex Male 1:44 PM [employer] Gender Identity Male 11/29/2024 9:50 AM CDT Sexual Orientation Straight 11/29/2024 9: 50 AM CDT documented as of this encounter Last Filed Vital Signs Vital Sign Reading [...] Mass Index 32.73 11/29/2024 9:48 AM CDT documented in this encounter Patient Instructions * Patient Instructions* Ester Restrepo NP - 11/29/2024 9:40 AM CDT Blood pressure elevated today, check at home Check at home with upper arm cuff 3-4 times weekly. Write down readings. Goal <140/90 Call if readings persistently elevated Refer to urology for frequent urination/BPH [facility] [address] [place] [address] documented in this encounter Progress Notes * Vicky Hathaway MA - 11/29/2024 9:40 AM CDTAddended by: VICKY HATHAWAY on: 12/02/2024 08:34 AM Modules accepted: Orders * Ester Restrepo NP - 11/29/2024 9:40 AM CDTSummary: diabetes, HTN, CKD Images from the original note were not included. Internal Medicine Outpatient Progress Note CC: Diabetes and Hypertension HPI: Missael Madrigal is a 84-year-old male who presents to follow-up on chronic conditions (type 2 diabetes, hypertension, hyperlipidemia, CKD). Takes all his medication in the morning Eye drops at night Denies constipation taking colace and iron BID tolerating well He did not take his medications yet today since he is fasting Urinary symptoms bothersome up 4-5 times a night to pee. Also has some dribbling in the daytime, PSA normal 03/2024 on Cardura. Type 2 diabetes Stable, repeat A1c 6.5 in July Last diabetic eye exam HTN Blood pressure elevated at last office visit amlodipine resumed Taking HCTZ and Cardura, does not check blood pressure at home he does not have a cuff. HLD LDL elevated at 144, pravastatin increased to 40 mg CKD IV Seeing nephrology Follow up in January Cr 1.94/BUN 43/eGFR 34/potassium 4.3 Previous hyperkalemia resolved after nephrology d/c his Lisinopril started HCTZ Farxiga DIEUDONNE Last CBC showing no anemia and iron studies at goal Iron started BID before meals Colace added twice daily at last appointment due to constipation Patient has history of below: Patient Active Problem List Diagnosis Type 2 diabetes mellitus without complication, without long-term current use of insulin ([facility]) Essential hypertension Mixed hyperlipidemia Benign prostatic hyperplasia with nocturia Throat clearing Glaucoma of both eyes, unspecified glaucoma type Hyperkalemia CKD stage 4 due to type 2 diabetes mellitus ([facility]) Iron deficiency anemia, unspecified iron deficiency anemia type Review of Systems Constitutional: Negative. HENT: Negative. Eyes: Negative. Respiratory: Negative. Cardiovascular: Negative. Genitourinary: Positive for frequency. Negative for dysuria. Dribbling Neurological: Negative. Psychiatric/Behavioral: Negative. Past Medical History: Past Medical History: Diagnosis Date COVID-19 vaccine administered 2020 Pfizer Diabetes mellitus ([facility]) Diabetic eye exam ([facility]) 05/21/2021 no significant diabetic retinpathy in either eye Hyperlipidemia Family History: Family History Problem Relation Name Age of Onset No Known Problems Mother No Known Problems Father Social History: Social History Tobacco Use Smoking status: Never Passive exposure: Never Smokeless tobacco: Never Vaping Use Vaping status: Never Used Substance Use Topics Alcohol use: Never Drug use: Never Medications: Outpatient Medications Marked as Taking for the 11/29/24 encounter (Office Visit) with Ester Restrepo NP Medication Sig Dispense Refill BLOOD PRESSURE CUFF, DME, 1 Device by Does not apply route 2 (two) times daily. 1 Device 1 latanoprost (XALATAN) 0.005 % ophthalmic solution instill 1 drop into both eyes every night at bedtime metFORMIN (GLUCOPHAGE) 500 MG tablet Take 1 tablet (500 mg total) by mouth 2 (two) times daily. Allergies: Review of patient's allergies indicates: Patient has no known allergies. ? Objective: Filed Vitals: 11/29/24 0948 BP: (!) 144/60 Pulse: (!) 52 Resp: 18 Temp: 98.1 ??F (36.7 ??C) TempSrc: Core SpO2: 99% Weight: 78.6 kg (173 lb 3.2 oz) Height: 1.549 m (5' 1 ) Body mass index is 32.73 kg/m??. Physical Exam Constitutional: Appearance: Normal appearance. Eyes: Conjunctiva/sclera: Conjunctivae normal. Cardiovascular: Rate and Rhythm: Normal rate and regular rhythm. Heart sounds: Normal heart sounds. No murmur heard. Pulmonary: Effort: Pulmonary effort is normal. No respiratory distress. Breath sounds: Normal breath sounds. No wheezing. Musculoskeletal: Right lower leg: No edema. Left lower leg: No edema. Skin: General: Skin is warm and dry. Neurological: Mental Status: He is alert. Psychiatric: Mood and Affect: Mood normal. Judgment: Judgment normal. Assessment and Plan: 1. Essential hypertension Elevated today he resumed amlodipine but has not taken his medications yet today. Continue current medications, monitor at home Follow up for appointment in January with nephrology repeat BP - BLOOD PRESSURE CUFF, DME,; 1 Device by Does not apply route 2 (two) times daily. Dispense: 1 Device; Refill: 1 2. Type 2 diabetes mellitus without complication, without long-term current use of insulin ([facility]) Diabetes trolls, A1c 6.8 today Diabetic eye exam yearly up-to-date - COMPREHENSIVE METABOLIC PANEL; Future - LIPID PANEL; Future - COMPREHENSIVE METABOLIC PANEL - LIPID PANEL - A1C (BACK OFFICE) 3. CKD stage 4 due to type 2 diabetes mellitus ([facility]) Stable, hyperkalemia resolved after holding JOHN and starting hydrochlorothiazide. Follow-up with nephrology Recommend increasing fluid intake - COMPREHENSIVE METABOLIC PANEL; Future - COMPREHENSIVE METABOLIC PANEL 4. Iron deficiency anemia, unspecified iron deficiency anemia type Stable, constipation improved with iron twice daily and Colace twice daily 5. Benign prostatic hyperplasia with post-void dribbling Refer to urology and check urinalysis today - Ambulatory referral to Urology ([facility]) 6. Need for qbsyhuaavw-sihfkbz-pcicnmbmw (Tdap) vaccine - [15129] Adacel (Tdap) 7. Urinary frequency - URINALYSIS; Future - URINE BACTERIA CULTURE; Future - URINALYSIS - URINE BACTERIA CULTURE Tobacco: Counseling given: No I personally spent a total of 30 minutes on the day of the encounter. This includes nlzo-ge-wlue and hrz-glnz-qc-face time I provided on the day of the encounter & excludes time spent performing separately reportable services. Side effects and less common but more severe adverse effects of recommended medical therapies were explained to the patient. Patient reminded to use MyChart or telephone follow up prn if symptoms change, worsen, or persist, or if side effect of treatment is experienced. RTC in April for physical Blood pressure check in January with nephrology ESTER RESTREPO NP 11/29/2024 [facility]. documented in this encounter Plan of Treatment Upcoming Encounters Date Type Department Care Team (Late st Contact Info) Description 01/28/2025 2:00 PM CDT Office Visit [facility] [place] [address] [place] [address] Daron Clark MD [address] [address] 05/01/2025 10:20 AM CDT Office Visit [facility] [place] [address] [place] [address] Ester Restrepo NP [address] [place] [address] Scheduled Orders Name Type Priority Associated Diagnoses Orde r Schedule URINALYSIS Lab Routine Urinary frequency Expected: 12/02/2024, Expires: 12/02/2025 URINE BACTERIA CULTURE Microbiology Routine Urinary frequency Expected: 12/02/2024, Expires: 12/02/2025 Scheduled Referrals Name Type Priority Associated Diagnoses Orde r Schedule Ambulatory referral to Urology ([facility]) Referral Routine Benign prostatic hyperplasia with post-void dribbling Ordered: 11/29/2024 documented as of this encounter Procedures Procedure Name Priority Date/Time Associated Diagnosis Comments COMPREHENSIVE METABOLIC PANEL Routine 11/29/2024 10:46 AM CDT Type 2 diabetes mellitus without complication, without long-term current use of insulin ([facility]) CKD stage 4 due to type 2 diabetes mellitus ([facility]/HCC) LIPID PANEL Today 11/29/2024 10:46 AM CDT Type 2 diabetes mellitus without complication, without long-term current use of insulin ([facility]) HEMOGLOBIN, GLYCOSYLATED Routine 11/29/2024 Type 2 diabetes mellitus without complication, without long-term current use of insulin ([facility]) documented in this encounter Results * (ABNORMAL) LIPID PANEL (11/29/2024 10:46 AM CDT) Pathologist [facility] CHOLESTEROL 187 <200 mg/dL [facility] HDL 57 > OR = 40 mg/dL [facility] TRIGLYCERIDES 116 <150 mg/dL [facility] LDL (CALCULATED) 108(H) mg/dL (calc) [facility] Comment: Reference range: <100 Desirable range <100 mg/dL for primary prevention; <70 mg/dL for patients with CHD or diabetic patients with > or = 2 CHD risk factors. LDL-C is now calculated using the Galindo-Coyle calculation, which is a validated novel method providing better accuracy than the Friedewald equation in the estimation of LDL-C. Galindo SS et al. LUANNE. 2013;310(19): 1648-7431 (http://education.ContentWatch/faq/GCK350) CHOL/HDL RATIO 3.3 <5.0 (calc) [facility] NON HDL CHOLESTEROL 130(H) <130 mg/dL (calc) [facility] Comment: For patients with diabetes plus 1 major ASCVD risk factor, treating to a non-HDL-C goal of <100 mg/dL (LDL-C of <70 mg/dL) is considered a therapeutic option. 11/29/2024 10:4 6 AM CDT 11/30/2024 3:48 AM CDT Narrative Resulting Agency Comment Performing Organization Information: Site ID: [id number] Name: [facility] Address: [address] [place] [address] Director: Emily Hayes MD us Ester Restrepo FULL TIME LABORATORY Final Resul t [facility] [address] [address], [place] * (ABNORMAL) COMPREHENSIVE METABOLIC PANEL (11/29/2024 10:46 AM CDT) GLUCOSE 128(H) 65 - 99 mg/dL [facility] Comment: Fasting reference interval For someone without known diabetes, a glucose value >125 mg/dL indicates that they may have diabetes and this should be confirmed with a follow-up test. BUN 30(H) 7 - 25 mg/dL [facility] CREATININE S/P/B 2.04(H) 0.70 - 1.22 mg/dL [facility] GFR ESTIMATE 32(L) > OR = 60 mL/min/1. 73m2 [facility] BUN CREATININE RATIO 15 6 - 22 (calc) [facility] SODIUM S/P/B 143 135 - 146 mmol/L [facility] POTASSIUM S/P/B 3.7 3.5 - 5.3 mmol/L [facility] CHLORIDE S/P/B 104 98 - 110 mmol/L [facility] CO2 23 20 - 32 mmol/L [facility] CALCIUM S/P/B 9.6 8.6 - 10.3 mg/dL [facility] TOTAL PROTEIN S/P/B 7.6 6.1 - 8.1 g/dL [facility] ALBUMIN S/P/B 4.2 3.6 - 5.1 g/dL [facility] GLOBULIN 3.4 1.9 - 3.7 g/dL (calc) [facility] ALBUMIN/GLOBULIN RATIO 1.2 1.0 - 2.5 (calc) [facility] BILIRUBIN TOTAL S/P/B 0.4 0.2 - 1.2 mg/dL [facility] ALKALINE PHOSPHATASE S/P/B 69 35 - 144 U/L [facility] AST 21 10 - 35 U/L [facility] ALT 23 9 - 46 U/L [facility] 11/29/2024 10:4 6 AM CDT 11/30/2024 3:48 AM CDT Narrative Resulting Agency Comment Performing Organization Information: Site ID: [id number] Name: [facility] Address: [address] [address] Director: Emily Hayes MD Ester Restrepo NP LABORATORY Final Resul t [facility] [address] [address], * A1C (BACK OFFICE) (11/29/2024) HGB A1C 6.8 % [id number] [place] 11/29/2024 Ester Restrepo NP LABORATORY Final Resul t Performing Organization Address City/[facility]/ZIP Co de Phone Number [id number] [place] [address] [place] [address], documented in this encounter Visit Diagnoses Diagnosis Essential hypertension- Primary Unspecified essential hypertension Type 2 diabetes mellitus without complication, without long-term current use of insulin ([facility]) CKD stage 4 due to type 2 diabetes mellitus ([facility]) Iron deficiency anemia, unspecified iron deficiency anemia type Benign prostatic hyperplasia with post-void dribbling Need for qvbhhtbkmg-ahalult-rcyhbxmrl (Tdap) vaccine Need for prophylactic vaccination with combined fuicbujlna-erzxngy-myfjuvyvb (DTP) vaccine Urinary frequency documented in this encounter Care Teams Slitting And Shipping Supervisor Relationship Specialty Start Date End Date Ester Restrepo NP [address] [place] [address] PCP - General NURSE PRACTITIONER 03/15/24 documented as of this encounter
[2024-12-02 10:57] LABS: Add Urine Microscopic? YES; Appearance Urine Clear (Clear); Bacteria Urine None Seen /hpf; Bilirubin Urine Negative (Negative); Blood Urine Negative (Negative); Color Urine Yellow (Yellow); Glucose Urine UA 3+ mg/dL (Negative); Ketones Urine Negative (Negative); Leukocyte Esterase Ur Negative LEU/UL (Negative); Nitrate Urine Negative (Negative); Non Pathogenic Casts 0-2; Protein Urine 1+ mg/dL (Negative); RBC Urine 0-2 /hpf (0-2); Specific Grav Ur 1.017 (1.001-1.035); Squamous Epithelial Cell Urine None Seen /hpf (Few); Urobilinogen Urine 0.2 mg/dL (<2.0); WBC Urine 0-5 /hpf (0-3); pH Urine 5.5 (5.0-9.0)
== END 2024-12-02 09:29 | disposition home or self-care (01) ==
PROVIDERS: PCP Nurse Practitioner; Visit Provider Nurse Practitioner
DX: R35.0 Frequency of micturition (principal)
CPT/HCPCS: 81001; 87086

== ENCOUNTER 2024-12-21 08:54 | Outpatient (CLI) | payer MEDICARE, SELFPAY ==
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
--- OUTSIDE RECORDS SUMMARY | 2024-12-21 08:58 | XMS_ITS | Continuity of Care Document ---
Author Organization [facility] Address [address] [place] [address] [address] [place] [address] Phone Care Team Providers Care Bevel Gear Generator Operator Name Role Phone King Flores Unavailable Unavailable Advance Directives Directive Yes / No Effective Date File Name No Information Encounters Encounter Description Practice Location Reason(s) For Visit Diagnoses Date Provider Providers Copied on Encounter [facility], [address] [place] [address] [address], [place], [place], [id number], [place] tel:[phone] [facility] No Information [address] Sandra Malik. [address] [facility] , [address], [place], [address], [place]. tel:[phone] Family History Family Member Type Diagnosis Age At Onset No Information Payers Payer name Insurance type Covered green party ID Authoriza tion(s) No Information Social History Type Description Quantity Date Captured Comments Sex Male Smoking Status No Information Chief Complaint And Reason For Visit No Information Reason For Referral Reason For Referral No Information History Of Present Illness Encounter Date Complaint History Of Prese nt Illness No Information Functional Status Date Functional Assessmen t No Information Instructions Date Instruction Additional Infor mation No Information Assessments Type Assessment Date No Information Patient Care Teams Name Effective Dates (start - stop) Status Members No Information
--- OUTSIDE RECORDS SUMMARY | 2024-12-21 08:58 | XMS_ITS | Encounter Summary ---
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 [place] [address] Ester Restrepo NP [address] [facility] [address] [place] [address] documented as of this encounter Visit Diagnoses Not on filedocumented in this encounter Care Teams Shade Matcher Relationship Specialty Start Date End Date Ester Restrepo NP [address] [facility] [address] [place] [address] PCP - General NURSE PRACTITIONER 03/15/24 documented as of this encounter
--- OUTSIDE RECORDS SUMMARY | 2024-12-21 08:58 | XMS_ITS | Clinical Summary ---
Author Organization [facility] Address [address] [place] [address] Phone Care Team Providers Care Mechanical Specialist Name Role Phone Unavailable Primary Care Provider [...]
--- OUTSIDE RECORDS SUMMARY | 2024-12-21 08:58 | XMS_ITS | Continuity of Care Document ---
Author Name [facility] Organization [facility] Care Team Providers Care Financial Systems Administrator Name Role Phone [facility] Unavailable Unavailable Problems Combined list of problems from [facility] facilities. It does not include entries that were removed or entered in error. Problem Status Onset Date Problem Type Date of Resolution Comments Source Elevated Liver Function Tests Active Condition [facility] Hypercholesterolemia Active Condition [facility] Hypertension Active Condition [facility] Hypertrophy (Benign) of Prostate with Urinary obstruction (ICD-9-CM 600.01) Active Condition [facility] Legal problems/circumstances Active Condition [facility] Immunizations Combined list of available immunizations from the [facility] and [facility] facilities. Immunization Series Date Given Administered By Site Reaction Lot Number CVX Code Drug Roller Checker Status Comments Source INFLUENZA, UNSPECIFIED FORMULATION 2005 ARNALDO MATHUR 89 comple t ed [facility] INFLUENZA, UNSPECIFIED FORMULATION 2004 88 complet ed [facility] INFLUENZA (HISTORICAL) 2003 88 complet ed [facility] TD(ADULT) UNSPECIFIED FORMULATION 2003 139 complet ed [facility] Social History Combined list of available smoking, tobacco, and other social history from [facility] and [facility] facilities. Social History Type Response Date Comment Sourc e Tobacco smoking status NHIS LIFETIME NON-TOBACCO USER 02/02/2005 [facility] History of tobacco use LIFETIME NON-TOBA RESIDENTIAL GLAZIER USER 03/25/2004 [facility] History of tobacco use LIFETIME NON-TOBA RESIDENTIAL GLAZIER USER 02/23/2004 [facility]
[2024-12-21 09:24] LABS: Basophils Percent Auto 0.4 % (0.2-1.2); Eosinophils Absolute Auto 0.2 K/mm3 (0-0.3); Eosinophils Percent Auto 2.9 % (0-4.4); Hematocrit 37.1 % (42.0-52.0); Hemoglobin 12.2 g/dL (14.0-18.0); Immature Granulocyte Absolute 0.01 K/mm3 (0.00-0.031); Immature Granulocyte Percent A 0.2 % (0-0.5); Lymphocytes Absolute Auto 1.91 K/mm3 (0.9-3.2); Lymphocytes Percent Auto 37.2 % (18.3-44.2); Mean Corpuscular HGB Conc 32.9 g/dl (32-36); Mean Corpuscular Hemoglobin 28.9 pg (26-34); Mean Corpuscular Volume 87.9 fl (80-100); Mean Platelet Volume 10.3 fl (7.4-10.4); Monocytes Absolute Auto 0.4 K/mm3 (0.1-0.6); Neutrophils Absolute Auto 2.6 K/mm3 (1.3-6.7); Neutrophils Percent Auto 51.3 % (45.5-73.1); Platelet Count Result 160 k/mm3 (150-375); Red Blood Count 4.22 M/mm3 (4.6-6.20); Red Cell Distribution Width 13.3 % (11.5-14.5); White Blood Count 5.1 K/mm3 (4.5-10.0)
[2024-12-21 09:33] LABS: Alanine Aminotransferase 29 U/L (6-50); Alkaline Phosphatase 75 U/L (38-126); Anion Gap 7 mmol/L (4-12); Aspartate Amino Transferase 30 U/L (17-59); Bilirubin,Total 0.4 mg/dL (0.2-1.3); Blood Urea Nitrogen 39 mg/dL (9-20); Calcium 8.8 mg/dL (8.4-10.2); Carbon Dioxide 27 mmol/L (22-30); Chloride 105 mmol/L (98-107); Estimated Glomerular Filt Rate 34; Glucose 135 mg/dL (65-110); Potassium 4.1 mmol/L (3.4-5.0); Sodium 139 mmol/L (137-145)
== END 2024-12-21 08:55 | disposition home or self-care (01) ==
PROVIDERS: PCP Nurse Practitioner; Visit Provider Nurse Practitioner
DX: R19.00 Intra-abdominal and pelvic swelling, mass and lump, unspecified site (principal)
CPT/HCPCS: 36415; 80053; 85025

== ENCOUNTER 2025-01-29 11:14 | Outpatient (CLI) | payer MEDICARE, SELFPAY ==
--- OUTSIDE RECORDS SUMMARY | 2025-01-29 11:46 | XMS_ITS | Continuity of Care Document ---
Author Organization [facility] Address [address] [place] [address] [address] [place] [address] Phone Care Team Providers Care Elementary Art Teacher Name Role Phone King Flores Unavailable Unavailable Advance Directives Directive Yes / No Effective Date File Name No Information Encounters Encounter Description Practice Location Reason(s) For Visit Diagnoses Date Provider Providers Copied on Encounter [facility], [address] [place] [address] [address], [place], [place], [id number], [place] tel:[phone] [facility] No Information [address] Sandra Malik. [address] [facility] , [address], [place], [address], [place]. tel:[phone] Family History Family Member Type Diagnosis Age At Onset No Information Payers Payer name Insurance type Covered alliance party ID Authoriza tion(s) No Information Social [...]
--- OUTSIDE RECORDS SUMMARY | 2025-01-29 11:46 | XMS_ITS | Continuity of Care Document ---
Author Name [facility] Organization [facility] Care Team Providers Care Air Boatswain Name Role Phone [facility] Unavailable Unavailable Problems Combined list of problems from [facility] facilities. It does not include entries that were removed or entered in error. Problem Status Onset Date Problem Type Date of Resolution Comments Source Elevated Liver Function Tests Active Condition [facility] Hypercholesterolemia Active Condition [facility] Hypertension Active Condition [facility] Hypertrophy (Benign) of Prostate with Urinary obstruction (ICD-9-CM 600.01) Active Condition [facility] Legal problems/circumstances Active Condition [facility] Immunizations Combined list of available immunizations from the [facility] facilities. Immunization Series Date Given Administered By Site Reaction Lot Number CVX Code Drug Tire Recapper Status Comments Source INFLUENZA, UNSPECIFIED FORMULATION 2005 ARNALDO MATHUR 89 comple t ed [facility] INFLUENZA, UNSPECIFIED FORMULATION 2004 88 complet ed [facility] INFLUENZA (HISTORICAL) 2003 88 complet ed [facility] TD(ADULT) UNSPECIFIED FORMULATION 2003 139 complet ed [facility] Social History Combined list of available smoking, tobacco, and other social history from [facility] facilities. Social History Type Response Date Comment Sourc e Tobacco smoking status NHIS LIFETIME NON-TOBACCO USER 02/02/2005 [facility] History of tobacco use LIFETIME NON-TOBA KEYSEATER OPERATOR USER 03/25/2004 [facility] History of tobacco use LIFETIME NON-TOBA KEYSEATER OPERATOR USER 02/23/2004 [facility]
--- OUTSIDE RECORDS SUMMARY | 2025-01-29 11:46 | XMS_ITS | Clinical Summary ---
Author Organization [facility] Address [address] [place] [address] Phone Care Team Providers Care Marketing And Outreach Coordinator Name Role Phone Unavailable Primary Care Provider [...]
[2025-01-29 12:01] LABS: Anion Gap 10 mmol/L (4-12); Blood Urea Nitrogen 29 mg/dL (9-20); Calcium 9.7 mg/dL (8.4-10.2); Carbon Dioxide 28 mmol/L (22-30); Chloride 104 mmol/L (98-107); Estimated Glomerular Filt Rate 31; Glucose 128 mg/dL (65-110); Potassium 4.3 mmol/L (3.4-5.0); Sodium 142 mmol/L (137-145); Uric Acid 7.4 mg/dL (3.5-8.5)
[2025-01-29 12:45] LABS: Creatinine Urine 159.3 mg/dL
[2025-01-29 13:08] LABS: MALB Creatinine Ratio 150.1 mg/g (0-30); Microalbumin Urine Random 239.1 mg/L (0-16.7)
== END 2025-01-29 11:15 | disposition home or self-care (01) ==
PROVIDERS: PCP Nurse Practitioner
DX: N18.32 Chronic kidney disease, stage 3b (principal)
CPT/HCPCS: 36415; 80048; 82043; 84550